=== PATIENT | male | born 1990 | race Caucasian/White ===

== ENCOUNTER 2016-09-17 11:03 | Emergency (ER) | payer OTHER, BC ==
[~2016-09-17] VITALS: Ht 182.9 cm; Wt 117.9 kg
[~2016-09-17 11:03] MED LIST: ASPIRIN325 MG PO; AUGMENTIN 500-500 MG PO; BACTRIM DS TAB1 EACH PO; IBUPROFEN400 MG PO; IBUPROFEN600 MG PO; KEFLEX500 MG PO; NORCO 5-325 TA1 EACH PO
[2016-12-19] MEDS ORDERED: BACTRIM DS TAB1 EACH PO (16:45)
[2016-12-19] MEDS ORDERED: NORCO 5-325 TA1 EACH PO (17:11)
[2016-12-19] MEDS ORDERED: KEFLEX500 MG PO (17:11)
== END 2016-09-17 11:27 | disposition home or self-care (01) ==
LOC: ED 11:03
DX: Z00.8 Encounter for other general examination (principal)

== ENCOUNTER → 2016-12-19 | Emergency (ER) | payer BC, OTHER ==
[~2016-12-19] VITALS: Ht 175.3 cm; Wt 117.0 kg
[~2016-12-19] MED LIST changes: +TRAMADOL HCL50 MG PO
== END ==
LOC: ED 15:49
DX: L03.011 Cellulitis of right finger (principal); I89.1 Lymphangitis; Z86.19 Personal history of other infectious and parasitic diseases; F17.200 Nicotine dependence, unspecified, uncomplicated; Z88.0 Allergy status to penicillin; Z88.1 Allergy status to other antibiotic agents
CPT/HCPCS: 85025; 96374; 96375; 99283; J0690; J2405

== ENCOUNTER 2016-12-21 02:14 | Emergency (ER) | payer BC, OTHER ==
[~2016-12-21] VITALS: Ht 182.9 cm; Wt 117.0 kg
[~2016-12-21 02:14] MED LIST changes: -TRAMADOL HCL50 MG PO
[2016-12-21] MEDS ORDERED: TRAMADOL HCL50 MG PO (05:38)
== END 2016-12-21 06:20 | disposition home or self-care (01) ==
LOC: ED 02:14
DX: S60.462A Insect bite (nonvenomous) of right middle finger, initial encounter (principal); L08.9 Local infection of the skin and subcutaneous tissue, unspecified; F17.200 Nicotine dependence, unspecified, uncomplicated; Z88.0 Allergy status to penicillin; Z88.8 Allergy status to other drugs, medicaments and biological substances; Z79.899 Other long term (current) drug therapy; W57.XXXA Bitten or stung by nonvenomous insect and other nonvenomous arthropods, initial encounter
CPT/HCPCS: 80053; 85025; 87070; 96365; 99283; J3370

== ENCOUNTER 2017-05-23 17:12 | Emergency (ER) | payer BC, OTHER ==
[~2017-05-23] VITALS: Ht 182.9 cm; Wt 117.0 kg
[~2017-05-23 17:12] MED LIST changes: +TRAMADOL HCL50 MG PO
[2017-05-23] MEDS ORDERED: NAPROSYN500 MG PO (18:57)
== END 2017-05-23 19:17 | disposition home or self-care (01) ==
LOC: ED 17:12
DX: S43.203A Unspecified subluxation of unspecified sternoclavicular joint, initial encounter (principal); F17.200 Nicotine dependence, unspecified, uncomplicated; Z88.5 Allergy status to narcotic agent; Z88.0 Allergy status to penicillin; Z88.8 Allergy status to other drugs, medicaments and biological substances; X58.XXXA Exposure to other specified factors, initial encounter
CPT/HCPCS: 71120; 99283

== ENCOUNTER 2019-04-18 13:13 | Emergency (ER) | payer OTHER ==
[~2019-04-18] VITALS: Ht 182.9 cm; Wt 123.4 kg
[~2019-04-18 13:13] MED LIST changes: +NAPROSYN500 MG PO
== END 2019-04-18 16:54 | disposition home or self-care (01) ==
LOC: ED 13:13
DX: R42 Dizziness and giddiness (principal); R51 Headache; F17.200 Nicotine dependence, unspecified, uncomplicated; Z88.5 Allergy status to narcotic agent; Z88.0 Allergy status to penicillin; Z88.8 Allergy status to other drugs, medicaments and biological substances
CPT/HCPCS: 87502; 99284

== ENCOUNTER 2019-11-18 06:30 | Day surgery (SDC) | payer OTHER ==
[~2019-11-18] VITALS: Ht 182.9 cm; Wt 117.9 kg
--- NOTE | 2019-11-18 08:26 | NUR ---
11/18/19 0826 Blaire,Sneha 0819 PT ARRVIED TO PACU ON 10L VIA MASK, RESP EVEN AND UNLABORED. PT REACTIVE TO TACTILE STIMULI AND EASILY FALLS ASLEEP. VSS. 0820 O2 DECREASD TO 7L. 0824 PT DENIES PAIN AND NAUSEA. PT SITTING IN HIGH FOWLERS AND ASLEEP WITH SNORING NOTED.
--- NOTE | 2019-11-18 08:27 | NUR ---
PT IS ALERT, ORIENTED AND SUPPORTED BY HIS DENTON. PT HAS NEVER HAD SURGERY, SOMEWHAT ANXIOUS. COUNSELED ON WHAT HE COULD EXPECT, GAVE HIM GUIDANCE. BOTH ARE PLEASANT, PT REQUESTED PRAYER. WILL FOLLOW
--- NOTE | 2019-11-18 08:51 | NUR ---
PT ARRIVES TO DS RM 4 FROM PACU DROWSY. PT ABLE TO DENY ANY PAIN OR NAUSEA. PT STATES, "NOW I SEE WHY I CAN'T DRIVE AFTER THIS." DC CRITERIA EXPLAINED TO PT, SPOUSE ARACELI AT BEDSIDE. CALL LIGHT WITHIN REACH. ICED WATER AND CRACKERS PROVIDED.
--- NOTE | 2019-11-18 09:30 | OR ---
[facility] [address], [place] [address] Signed DATE OF OPERATION: 11/18/2019 SURGEON: Nancy Acosta MD PREOPERATIVE DIAGNOSIS: Posterior midline cervical epidermal cyst. POSTOPERATIVE DIAGNOSIS: Posterior midline cervical epidermal cyst. PROCEDURE: Excision of posterior midline cervical epidermal cyst. ESTIMATED BLOOD LOSS: None. FINDINGS: Chris had tremendous inflammatory changes and induration in the surrounding tissue. There were no local signs and symptoms of infection currently. INDICATIONS: Chris is a 29-year-old gentleman, who works as a clerk general office. It is very hot, dirty, sweaty work. He has had trouble with a cyst over the posterior midline of his neck. He had gone it swelled up and covered the whole back of his neck and down onto the top of his back. He had to go to the emergency room for evaluation. Dr. Abernathy performed his incision and drainage. There was no obvious abscess pocket. He had been on antibiotics and slowly, but surely making progress. He had been asked to see me in followup. We continued him on antibiotics and had him back in the office a second time with continued improvement. I had explained to Chris these was associated with the cyst wall. We liked the inflammation and induration to shrink as much as possible, so that his incision will be as small as possible and will take out the least amount of tissue. Even then it can be difficult to find the cyst wall. If the cyst wall remaining, they tend to recur. He understands. We will repeat his transverse incision. It is a day surgery and he will be allowed to go home afterwards. There is risk to the surgery including, but not limited to bleeding, infection, scarring, change in contour of the skin as well as recurrent cyst in the same or other locations. He had expressed understanding and wished to proceed. DESCRIPTION OF PROCEDURE: I met with Chris and his in our preop area. We reviewed the above findings. He Electronically Signed By: NANCY ACOSTA MD 11/18/19 0930 PATIENT NAME: CHRIS KAN OPERATIVE REPORT DATE OF : 89 REPORT #: [id number] PHYSICIAN: NANCY ACOSTA MD PCP: MARINO LÓPEZ MD REPORT IS CONFIDENTIAL AND NOT TO BE RELEASED WITHOUT AUTHORIZATION [facility] [address] [place] [id number] Signed still has indurated tissue every bit a 2.5 to 3 cm in diameter. However, there are no local signs or symptoms of infection today. Overall, it is markedly improved. The area was appropriately marked. After this, Chris was taken in the operating room and placed in the prone position under general endotracheal tube anesthesia. Appropriate padding and monitoring were placed. He was given preoperative antibiotics along with subcutaneous heparin. SCDs were utilized. He was prepped and draped in the usual sterile fashion. We utilized a transverse elliptical incision to remove some of the overlying skin and went down and around the lesion with the help of the cautery. We found the tissue to be unbelievably dense and indurated. Thus, the entire lesion was removed en bloc. On palpation, it feels like the cyst with surrounding indurated adipose tissue. After this, the wound was injected with local anesthetic. The wound was irrigated and suctioned out until clear. The dermis was reapproximated with interrupted 3-0 subcuticular Monocryl sutures. The skin edges were reapproximated with a running 5-0 fast absorbing plain gut suture. Dry gauze and tape were applied. Chris was then rotated into the supine position onto his hospital bed. He was weaned from his anesthesia and extubated in the OR, and taken to the recovery room in stable condition. Nancy Acosta MD ALB/MODL /[id number] cc: Nancy Acosta MD Copies: NANCY ACOSTA MD ~ Electronically Signed By: NANCY ACOSTA MD 11/18/19 0930 PATIENT NAME: CHRIS KAN OPERATIVE REPORT DATE OF : [birth year] REPORT #: [id number] PHYSICIAN: NANCY ACOSTA MD PCP: MARINO LÓPEZ MD REPORT IS CONFIDENTIAL AND NOT TO BE RELEASED WITHOUT AUTHORIZATION
--- NOTE | 2019-11-18 09:41 | NUR ---
PT RESTING IN BED WITH SPOUSE AT BEDSIDE. PT AWAKE ON ENTRANCE TO ROOM, DENIES PAIN OR NAUSEA AND TOLERATES PO WELL. PT EASILY DOSES OFF WITH NO STIMULATION. RESP EVEN AND UNLABORED, SATS GREATER THAN 90% ON RA. CALL LIGHT WITHIN REACH, PT WILL USE WITH URGET TO VOID.
--- NOTE | 2019-11-18 10:01 | NUR ---
PT USES CALL LIGHT TO NOTIFY RN OF URGE TO VOID. PT SLOWLY REPOSITIONS TO SIT ON SIDE OF BED, DENIES ANY DIZZINESS OR NAUSEA. PT AMBULATES TO BR WITH RN ASSIST, STEADY GAIT. PT ABLE TO VOID QS WITH NO PROBLEMS. BACK TO DS RM4 TO GET DRESSED WITH SPOUSE PRESENT.
--- NOTE | 2019-11-18 10:10 | NUR ---
DC INSTRUCTIONS GIVEN IN PRESENCE OF PT AND SPOUSE, ALL QUESTIONS ADDRESSED. PAIN PRESCRIPTION PROVIDED IN DC PACKET. PT DC FROM DS RM 4 VIA WC TO PERSONAL VEHICLE DRIVEN BY SPOUSE TO HOME.
--- NOTE | 2019-11-22 11:06 | PATH ---
[facility] [address] [place], [place] [address] Signed SPECIMEN(S): A POSTERIOR NECK SPECIMEN SOURCE: A. POSTERIOR NECK CLINICAL HISTORY: Excision, subcutaneous mass, posterior neck. FINAL PATHOLOGIC DIAGNOSIS: Skin and soft tissue, posterior neck, excision: - Epidermoid inclusion cyst with evidence of prior rupture. MICROSCOPIC EXAMINATION: Histologic sections of all submitted blocks are examined by light microscopy. These findings, together with the gross examination, support the pathologic diagnosis. GROSS DESCRIPTION: The specimen, labeled "Chris Trinidad Oral," and designated on the requisition "posterior neck," is received in formalin and consists of a 3.2 x 2.9 x 2.4 cm pink-cota rubbery tissue fragment that is partially surfaced by a 3.5 x 1.0 cm ellipse of skin. The skin surface is white-cota and slightly roughened. The specimen is sectioned revealing a 1.2 x 0.7 x 0.6 cm cystic structure that contains a white pasty material. Procurement Director sections are submitted in cassette (A1). FB (under the direct supervision of a pathologist) The Gross Description was prepared using a voice recognition system. The report was reviewed for accuracy; however, sound-alike word errors, addition and/or deletions may occur. If there is any question about this report, please contact Client Services. PERFORMING LABORATORY: The technical component was performed by [facility], [address] [place] [id number] (Family Independence Case Manager: Talita Rubin MD; CLIA# [id number]). [facility], [address] [place] [id number] (CLIA# [id number]). Diagnostician: Ludmila Jorge MD Pathologist Electronically Signed 11/22/2019 PATIENT NAME: CHRIS TRINIDAD PATHOLOGY DATE OF : [birth year] REPORT #: [id number] PHYSICIAN: [facility] PCP: MARINO LÓPEZ MD REPORT IS CONFIDENTIAL AND NOT TO BE RELEASED WITHOUT AUTHORIZATION [address] [place], [place] [address] Signed Copies: ~ PATIENT NAME: CHRIS TRINIDAD PATHOLOGY DATE OF : [birth year] REPORT #: [id number] PHYSICIAN: [facility] PCP: MARINO LÓPEZ MD REPORT IS CONFIDENTIAL AND NOT TO BE RELEASED WITHOUT AUTHORIZATION
== END 2019-11-18 10:10 | disposition home or self-care (01) ==
LOC: DS 06:30 → OPS 06:30 → DS 06:45 → OPS 06:45
PROVIDERS: ATTEND Colon & Rectal Surgery
PROC: 0JB50ZZ Excision of Left Neck Subcutaneous Tissue and Fascia, Open Approach (ICD-10-PCS; principal; 2019-11-18 06:45)
DX: L72.0 Epidermal cyst (principal); F17.210 Nicotine dependence, cigarettes, uncomplicated; Z88.0 Allergy status to penicillin; Z88.5 Allergy status to narcotic agent; Z88.8 Allergy status to other drugs, medicaments and biological substances
CPT/HCPCS: 00300; J0330; J0690; J1100; J1644; J1885; J2250; J2405; J2704; J2765; J3010; J7121

== ENCOUNTER 2022-11-17 17:13 | Emergency (ER) | payer OTHER ==
[~2022-11-17] VITALS: Ht 182.9 cm; Wt 127.0 kg
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
[2022-11-17] MEDS ORDERED: HYDROCODON-ACE1 EA10 PO (17:58)
[2022-11-17] MEDS ORDERED: CEPHALEXIN500 M1 PO (20:38)
[2022-11-17] MEDS ORDERED: PERCOCET 5-3251 EACH PO (20:38)
[2022-11-17 23:10] VITALS: BP 125/76
== END 2022-11-17 23:11 | disposition home or self-care (01) ==
LOC: ED 17:13
DX: S82.141A Displaced bicondylar fracture of right tibia, initial encounter for closed fracture (principal); S62.337A Displaced fracture of neck of fifth metacarpal bone, left hand, initial encounter for closed fracture; F17.200 Nicotine dependence, unspecified, uncomplicated; Z88.0 Allergy status to penicillin; Z88.5 Allergy status to narcotic agent; Z88.8 Allergy status to other drugs, medicaments and biological substances; V29.99XA Rider (driver) (passenger) of other motorcycle injured in unspecified traffic accident, initial encounter
CPT/HCPCS: 73130; 73700; A9270; J1170

== ENCOUNTER 2024-06-04 19:22 | Emergency (ER) | payer OTHER ==
[~2024-06-04] VITALS: Ht 182.9 cm; Wt 123.6 kg
[~2024-06-04 19:22] MED LIST changes: +CEPHALEXIN500 M1 PO; +HYDROCODON-ACE1 EA10 PO; +PERCOCET 5-3251 EACH PO
[2024-06-04] MEDS ORDERED: diphenhydrAMINE HCL 50 MG/ML VIAL IV ONE (19:45)
[2024-06-04] MEDS ORDERED: DEXAMETHASONE SOD PHOS 4 MG/ML VIAL IV ONE (19:45)
[2024-06-04] MEDS ORDERED: CETIRIZINE HCL 10 MG TAB PO ONE (19:45)
[2024-06-04] MEDS ORDERED: FAMOTIDINE 20 MG/ 2 ML VIAL IV ONE (19:45)
[2024-06-04] MEDS ORDERED: ZYRTEC10 M3 PO (20:30)
[2024-06-04] MEDS ORDERED: methylPREDNISolone 4 MG HOME.PACK PO ONE (20:30)
[2024-06-04] MEDS ORDERED: EPIPEN 2-P0.3 MG/0.3 IM ×2 (20:33)
[2024-06-04 20:42] VITALS: BP 121/84
== END 2024-06-04 20:43 | disposition home or self-care (01) ==
LOC: ED 19:22
DX: T78.40XA Allergy, unspecified, initial encounter (principal); F17.200 Nicotine dependence, unspecified, uncomplicated; Z88.0 Allergy status to penicillin; Z88.5 Allergy status to narcotic agent; Z88.8 Allergy status to other drugs, medicaments and biological substances
CPT/HCPCS: 70360; 96374; 96375; 99284-25; J1100; J1200